=== PATIENT | male | born 1990 | race Caucasian/White ===

== ENCOUNTER → 2016-08-27 | Outpatient (CLI) | payer BC ==
[~2016-08-27] MED LIST: NO MEDICATIONS; OMEPRAZOLE40 MG PO; ONE DAILY1 EACH; [UNRECOGNIZED DRUG - OTHER]
--- NOTE | ~2016-08-27 | CT130 ---
[facility] A Service of [facility] & [facility] RADIOLOGY TEXT RESULTS PATIENT: DELROY PHAN LOCATION: [facility] : 91 UNIT #: [id number] AGE: [address]: Aly Zhao MD SEX: M ORDER DR: [id number] [facility] [address] [place], [place] [address] [id number] O MR#: [id number] Acc #: [id number] NAME: DELROY PHAN : 1990 SEX: M STUDY DATE/TIME: 08/27/2016 15:50 UNIT: [facility] ROOM: STUDY DESCRIPTION: CT Upper Ext Rt Wo Cont Attending Physician: Aly Zhao M.D. Referring Physician: Aly Zhao M.D. Ordering Physician: Aly Zhao M.D. Primary Care Physician: Eric Bethea M.D. 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 Initial injury 05/10/2016 playing soccer, landed directly on forearm. Patient has had multiple surgeries. COMPARISON Right elbow and forearm films 08/21/2016 TECHNIQUE Thin section axial images performed through the right elbow with sagittal and coronal reconstructed images reviewed at a workstation. Additional 3-D volume-rendered reconstructed images were also obtained. This CT exam was performed with one or more of the following radiation dose reduction techniques: automatic exposure control, adjustment of mA and/or kV according to patient size, and iterative reconstruction. FINDINGS Patient is status post ORIF of a mildly comminuted oblique fracture through the proximal ulnar shaft with a dorsal plate with proximal and distal fixation screws. No evidence of instrumentation failure or loosening. The fracture remains clearly visible with minimal endosteal healing. There is exuberant callus along the medial and lateral margins of the fracture which is nonspecific but can be associated with abnormal motion across the fracture or altered stress. The fracture is estimated at less than 25% healed with only minimal endosteal healing and no firm bony bridging. There is a complete transverse fracture through the radial neck with no evidence of endosteal healing and bridging callus. There is some callus [facility] A Service of [facility] & [facility] RADIOLOGY TEXT RESULTS PATIENT: DELROY PHAN LOCATION: [facility] : 91 UNIT #: [id number] AGE: [address]: Aly Zhao MD SEX: M ORDER DR: around the fracture site but no significant bony bridging. This is compatible with a nonunion. There is lucency within the radial head fragment particularly along the medial margin of the radial head which may represent focal osteolysis. Pin tracks are seen along the lateral aspect of the radial head but no remaining instrumentation is identified. There is a small interposed fragment at the surface margin of the fracture. There is a 7 mm fragment within the more central and anterior aspect of the elbow joint. There is also a small fragment posteriorly in the region of the olecranon fossa measuring about 4 mm and this may also represent a loose body as well. There is a sizeable fragment extending from the coronoid process of the ulna measuring approximately 1.38 x 0.8 x 1.7 cm. I suspect this represents an ununited fracture of the sublime tubercle. There is some surrounding heterotopic ossification. The distal ulna appears intact. There is some minimal calcification along the lateral aspect of the elbow in the region of the common extensor tendon origin. Focal lucency is noted within the distal humeral capitellum which could represent an area of osteochondral injury or focal osteolysis. The appearance somewhat suggestive that this may be postsurgical. Correlate with patient's surgical procedure. This measures approximately 4 mm in greatest transverse dimension. Soft tissues remarkable for an elbow effusion. Elbow musculature grossly intact. IMPRESSION 1. Status post ORIF of a proximal humeral shaft fracture with exuberant callus noted about the fracture and the fracture shows minimal endosteal healing and no significant bridging callus. The fracture is estimated at less than 25% healed. No evidence of instrumentation failure. 2. 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 3. 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 4. At least 2 suspected intraarticular loose bodies, 1 along the posterior aspect of the elbow joint and 1 within the central joint as detailed above. 5. Focal lucency within the distal humerus in the region of the humeral capitellum. It is unclear whether this is postsurgical or represents an area of osteochondral injury. Dictated by... Kenna Marquez M.D. THIS IS AN ELECTRONICALLY VERIFIED REPORT Kenna Marquez M.D. at 08/30/2016 10:37 PM [facility] A Service of [facility] RADIOLOGY TEXT RESULTS PATIENT: DELROY PHAN LOCATION: [facility] : 91 UNIT #: [id number] AGE: [address]: Aly Zhao MD SEX: M ORDER DR: GERARDO/jerad TD: 08/30/2016 16:07 JOB #: [id number] MEDICAL IMAGING REPORT Page 1 of 1 COPY
== END | disposition home or self-care (01) ==
LOC: CCAT 14:08
DX: Z01.818 Encounter for other preprocedural examination (principal); S52.131K Displaced fracture of neck of right radius, subsequent encounter for closed fracture with nonunion; S52.201K Unspecified fracture of shaft of right ulna, subsequent encounter for closed fracture with nonunion
CPT/HCPCS: 73200

== ENCOUNTER → 2016-09-12 | Day surgery (SDC) | payer BC ==
--- NOTE | ~2016-09-12 | CR133 ---
[facility] A Service of [facility] & [facility] RADIOLOGY TEXT RESULTS PATIENT: DELROY PHAN LOCATION: [facility] : 91 UNIT #: [id number] AGE: [address]: Aly Zhao MD SEX: M ORDER DR: [id number] [facility] [address] [place], [place] [address] [id number] O MR#: [id number] Acc #: [id number] NAME: DELROY PHAN : 1990 SEX: M STUDY DATE/TIME: 09/12/2016 12:55 UNIT: [facility] ROOM: STUDY DESCRIPTION: CR Forearm 2 View Rt Attending Physician: Aly Zhao M.D. Ordering Physician: Aly Zhao M.D. Primary Care Physician: Alysha Elizalde M.D. MEDICAL IMAGING REPORT This report is preliminary unless electronic signature is present EXAM Right forearm, 2 views. HISTORY Arm surgery today. Initial exam postop. COMPARISON 08/21/2016 FINDINGS There has been interval revision [id number] fixation of the proximal ulna. There has been interval resection of the radial head and proximal radial diaphysis. Suspected postoperative soft tissue swelling. IMPRESSION Postop changes, as described. Dictated by... Etienne Marquez M.D. THIS IS AN ELECTRONICALLY VERIFIED REPORT Etienne Marquez M.D. at 09/13/2016 8:57 AM LAM/devi TD: 09/12/2016 14:08 JOB #: [id number] MEDICAL IMAGING REPORT Page 1 of 1 COPY
--- NOTE | ~2016-09-12 | CR91 ---
[facility] A Service of [facility] & [facility] RADIOLOGY TEXT RESULTS PATIENT: DELROY PHAN LOCATION: [facility] : 91 UNIT #: [id number] AGE: [address]: Aly Zhao MD SEX: M ORDER DR: [id number] [facility] [address] [place], [place] [address] [id number] O MR#: [id number] Acc #: [id number] NAME: DELROY PHAN : 1990 SEX: M STUDY DATE/TIME: 09/12/2016 8:19 UNIT: [facility] ROOM: STUDY DESCRIPTION: CR Elbow 2 View Rt Attending Physician: Aly Zhao M.D. Ordering Physician: Aly Zhao M.D. Primary Care Physician: Alysha Elizalde M.D. MEDICAL IMAGING REPORT This report is preliminary unless electronic signature is present EXAM C-arm fluoroscopy with 10 permanent images of the right elbow, 09/12/2016. HISTORY ORIF right elbow, fracture right elbow, pain and swelling status post fall today. FINDINGS C-arm fluoroscopy was provided for use in the operating room. 10 spot film fluoroscopic images of the right elbow were obtained documenting placement of surgical plate and screws across the fracture of the proximal ulna. There is also placement of a radial head prosthesis. The bones appear in anatomic alignment. 2.1 minutes of fluoroscopy time was utilized. Dictated by... Aly Guy M.D. THIS IS AN ELECTRONICALLY VERIFIED REPORT Aly Guy M.D. at 09/14/2016 8:04 AM HIMANSHU/haider TD: 09/13/2016 09:33 JOB #: [id number] MEDICAL IMAGING REPORT Page 1 of 1 COPY
--- NOTE | ~2016-09-12 | OR ---
Unit #: [id number] #: [id number] Patient: DELROY PHAN [id number] [address] [address] [id number] O MR#: [id number] NAME: DELROY PHAN ROOM: Date of Procedure: 09/12/2016 Admission Date: 09/12/2016 Surgeon: Aly Zhao M.D. : 1990 Attending Physician: Aly Zhao M.D. Primary Care Physician: Alysha Elizalde M.D. OPERATIVE REPORT PREOPERATIVE DIAGNOSES 1. Right ulnar Monteggia fracture, nonunion. 2. Right radial neck fracture, nonunion. PROCEDURES PERFORMED 1. Revision open reduction and internal fixation of right Monteggia fracture. 2. Right radial head excision. IMPLANTS 1. Lea nonlocking 10-hole small fragment compression plate. 2. Lea 5-hole 1/3 semitubular plate. 3. RTI Surgical Map-3 allograft. TOOL KEEPER Gianna Fallon. ANESTHESIA General with interscalene nerve block. TOURNIQUET TIME 2 hours. ESTIMATED BLOOD LOSS 25 mL. INDICATIONS FOR PROCEDURE Mat is a 25-year-old, who sustained an injury to his right elbow while playing soccer away from home in [place]. He underwent an initial ORIF of the ulna and percutaneous pinning of the radial head. The pins were subsequently removed in a later operation. He has now returned home for further followup on a second opinion. He has a nonunion of the radial neck as well as of the ulnar fracture. There were several screws traversing the ulnar fracture. He has a traumatic radial bow as well. We have discussed revision ORIF of the Monteggia ulnar fracture as well as possible revision ORIF of the radial head versus radial head replacement versus excision. He elected to proceed. DESCRIPTION OF PROCEDURE The patient was identified in the preoperative holding area. The operative site was marked. Preoperative antibiotics were administered. A regional block was performed. The patient was brought to the operating Unit #: [id number] #: [id number] Patient: DELROY PHAN room and placed supine on the operating table. General anesthetic was induced. The right arm was prepped and draped in sterile fashion over a nonsterile upper arm tourniquet. The arm was placed across the chest on a padded Martell stand. The arm was exsanguinated and the tourniquet was inflated. The previous incision was reopened and dissection carried down to the plate. The plate was easily identifiable in the soft tissues. The screws were removed. Consideration was given to keep this plate and adjusting the position of the screws. However, as we elevated both volar and dorsal to the fracture site to evaluate the reduction, it was clear that the fracture was now reduced. Therefore, the plate was completely taken down. The fibrous union was completely taken down and the 2 fragments and identified. The canal of each bone was completely obliterated. These were then redrilled and opened using a 2/5 drill bit and small curette to re-established intramedullary flow. The fracture was then anatomically reduced of the more dorsal cortex. There was a gap formation along the ulnar cortex, which probably contributed to the ulnar reduction. Once we had re-established the correct length of the ulna as there was previously some shortening, we then provisionally fixed this with a small 1/3 tubular plate along the dorsal aspect as we were able to clamp across this or otherwise secured with K-wires. The Map-3 allograft was opened and soaked and once it had desired consistency, it was then placed into the fracture site along the area of gap formation in the more volar cortex. The fracture was then fixed with a 10-hole compression plate. This was secured with all nonlocking screws. We utilized 3 screws proximal and 3 screws distal to the fracture. We were unable to significantly compress through the plate as the bony defect in the volar cortex going to result in unsupported compression across this area, which was then again now reduced the fracture. The fracture was however well reduced and without gap formation on the dorsal cortex. The reduction and plate application was checked under C-arm imaging. We elected to leave the 1/3 tubular plate as well. The attention was then turned to the radial head. A skin flap was elevated laterally. A Soto type approach was performed and split through the common extensors. The elbow joint was entered. The annular ligament was then divided. Dissection was carried carefully down along the radial neck. The posterior interosseous nerve was actually identified crossing quite close to the radial neck. This was carefully dissected with tenotomy scissors only sufficiently to the degree, which it needed to be identified and protected. The nonunion of the radial neck was inspected. Fibrous tissue was taken down and there was a substantial amount of bone loss to the radial neck once we removed the fibrous tissue. The head itself appeared to be largely nonviable and a large chondral defect as well. The head was therefore excised. Consideration was then given to place a radial head implant. The canal was reestablished as this was completely occluded. We then broached and even trialed a radial head implant, however, given his substantial radial bowing, encountered difficulty. On one view, the implant appeared to be directly in line down the forearm, but however on the more supinated view, this continued to go into a medially directed position against the cortex of the radial tuberosity. Upon inspection of the radiographs, it was clear that the traumatic bow of the radius was going to preclude the placement of the radial head in a typical fashion. If one followed the true radial bow, this was going to place the radial head actually overlying the ulna at the proximal radioulnar joint. With the implant in place, the arm was taken through range of motion and the radial head Unit #: [id number] #: [id number] Patient: DELROY PHAN rotated off the capitellum dorsally or anteriorly. This may have been contributed by the Monteggia fracture. However, it is felt that this was actually now anatomically reduced compared to the initial operation. Ultimately, we elected to leave the radial head out and perform an excision only. The tourniquet was then deflated and hemostasis was achieved with Bovie and bipolar electrocautery. The wounds were then closed with 0 Vicryl in the radial head Soto approach and 0 Vicryl over the ulna. The subcutaneous tissues were closed with 2-0 Vicryl and 3-0 Monocryl. Steri-Strips and sterile dressings were applied. The patient was placed in a soft dressing and sling. DISPOSITION Stable to the recovery room. Dictated by... Naz Fagan/yaya TD: 09/12/2016 23:27 JOB #: [id number] OPERATIVE REPORT Page 1 of 1 X Aly Zhao MD X PROCEDURE OPERATIVE NOTE
== END | disposition home or self-care (01) ==
LOC: CSUR 05:47
DX: S52.271K Monteggia's fracture of right ulna, subsequent encounter for closed fracture with nonunion (principal); S52.131K Displaced fracture of neck of right radius, subsequent encounter for closed fracture with nonunion; Z88.5 Allergy status to narcotic agent; Z98.890 Other specified postprocedural states
CPT/HCPCS: 73070; 73090; 76001; C1713; C1776; J0690; J2250; J2405; J2795; J3010